=== PATIENT | female | born 1985 | race Caucasian/White ===

== ENCOUNTER 2017-03-22 04:01 | Inpatient (IN) | payer OTHER ==
[2017-03-22] MEDS ORDERED: LIDOCAINE 1% 30 ML SDV SC PRN (04:29)
[2017-03-22] MEDS ORDERED: LR 1,000 ML IV PRN ×2 (04:29→11:35)
[2017-03-22] MEDS ORDERED: OLIVE OIL 118 ML BTL MISC PRN (04:29)
[2017-03-22] MEDS ORDERED: EPSOM SALT 454 GM TP PRN (04:29)
[2017-03-22] MEDS ORDERED: TERBUTALINE SULFATE 1 MG/ML VIAL IV PRN (04:29)
[2017-03-22] MEDS ORDERED: OXYTOCIN/RINGERS LACTATE 1,000 ML IV PRN (04:29)
--- NOTE | 2017-03-22 04:51 | OBPROG ---
OBG Progress Note Assessment/Plan: Assessment: cat1 fhr pain well managed regular contractions q2-3 clear fluid vaginally rom 1999 iv ok wants a nonmedicated Plan:expectant management of labor 03/22/17 04:49 Subjective: doing well. Coping well with pain. Regular contractions. Continued loss of clear fluid. - SVE Dilation (cm): 4 Effacement (%): 75 Station: -2 Current Contraction Pattern: Regular FHR (bpm): 125 FHR Pattern Variability: Moderate FHR Category: 1 Membranes: SROM Amniotic Fluid Color: Clear - Physical Exam General Appearance: WD/WN, alert, no apparent distress Respiratory: chest non-tender, lungs clear, normal breath sounds Cardiac/Chest: regular rate, rhythm Abdomen: normal bowel sounds Membranes: SROM Amniotic Fluid Color: clear Extremities: normal range of motion, Dc's sign (negative bilaterally) DTR- Lower Extremities: Knee (R): 1+, Knee (L): 1+ Skin: normal color, warm/dry Neuro/Psych: no motor/sensory deficits, alert, normal mood/affect, oriented x 3 ICD10 Worksheet Patient Problems: Problems Problem Status Onset Full-term PROM with onset of labor within 24 hours of rupture Acute - ICD10 Problem Qualifiers (1) Full-term PROM with onset of labor within 24 hours of rupture
--- NOTE | 2017-03-22 05:54 | GHP ---
[f rep st] HISTORY AND PHYSICAL DATE OF ADMISSION: 03/22/2017 HISTORY OF PRESENT ILLNESS: Patient is a 31-year-old, 1, para 0, with an EDC of 03/20/2017 which gives her a gestational age of 40-2/7 weeks. Patient states rupture of membranes at 1999 on 03/21/2017 with positive fluid leaking vaginally on admission to Labor and Delivery on 03/22/2017 at 0430. Feeling positive movement. Regular contractions q.2-3 minutes apart. Clear fluid. Some small things to eat on admission. Vital signs within normal limits on admission. PAST MEDICAL HISTORY: UTIs a few years ago. PAST SURGICAL HISTORY: LASIK in 2010. FAMILY HISTORY: Noncontributory. GYNECOLOGICAL HISTORY: Previous use of OCPs. HISTORY: Patient is primip with history of a low-lying placenta less than 7 mm that has since resolved with ultrasound verification at 20 weeks gestation. LABORATORY DATA: Patient is B positive, antibody negative. RPR is nonreactive. Rubella is immune. Hepatitis is negative. HIV is negative. Pap was within normal limits. Gonorrhea and chlamydia were negative. AFP on 2015 was negative. Verifi was negative. One-hour was within normal limits. GBS was negative. PHYSICAL EXAMINATION: GENERAL: Patient is awake, alert, oriented x3. LUNGS: Clear bilaterally. ABDOMEN: Bowel sounds are positive in all 4 quadrants. Abdomen is soft on palpation. Contractions are q.2-3 minutes. EXTREMITIES: DTRs are 1+ bilaterally. Clonus is negative. PELVIC: 4, 75, -2, cephalic presentation. PLAN: 1. Patient is GBS negative. 2. Patient requests low intervention, as well as nonmedicated . 3. Intermittent auscultation. 4. Continued leaking of clear fluid with rupture of membranes verified at 1999 on 03/21/2017 /[id number]/MODL MTDD
[2017-03-22 06:37] LABS: % IMMATURE GRANULYOCYTES 0.6 % (0.0-1.1); ABSOLUTE IMMATURE GRANULOCYTES 0.08 10^3/uL (0.00-0.10); ADD DIFF? NO; ADD MORPH? NO; ADD SCAN? NO; ATYPICAL LYMPHOCYTE FLAG 0 (0-99); FRAGMENT RBC FLAG 0 (0-99); HEMATOCRIT 36.7 % (38.0-47.0); HEMOGLOBIN 13.1 g/dL (12.6-16.3); LEFT SHIFT FLG 0 (0-99); LIPEMIA HEMOLYSIS FLAG 90 (0-99); MEAN CELL HEMOGLOBIN 30.9 pg (27.9-34.1); MEAN CELL HEMOGLOBIN CONCENTR. 35.7 g/dL (32.4-36.7); MEAN CELL VOLUME 86.6 fL (81.5-99.8); MEAN PLATELET VOLUME 9.7 fL (8.7-11.7); PLATELET CLUMPS FLAG 10 (0-99); PLATELET COUNT 185 10^3/uL (150-400); RED BLOOD CELL COUNT 4.24 10^6/uL (4.18-5.33); RED CELL DISTRIBUTION WIDTH 12.7 % (11.5-15.2)
--- NOTE | 2017-03-22 09:46 | OBPROG ---
OBG Progress Note Assessment/Plan: Assessment: IUP at 40w2d with SROM at 12+hours GBS - desiring natural approach, will do acupuncture - rec pitocin - pt declines at this point Plan: Doing ok - breathing with some and palp tight 03/22/17 09:43 Subjective: doing ok - seems to be vira well Objective: 03/22/17 06:20 Patient ABO/Rh B POSITIVE 03/22/17 06:20 Current Contraction Pattern: Regular (q 3-6 min - not on monitoring cntinuously) FHR (bpm): 120 FHR Pattern Variability: Moderate FHR Category: 1 Membranes: SROM Amniotic Fluid Color: Clear ICD10 Worksheet Patient Problems: Problems Problem Status Onset Full-term PROM with onset of labor within 24 hours of rupture Acute
[2017-03-22] MEDS ORDERED: OLIVE OIL 118 ML BTL ONE (11:57)
[2017-03-22] MEDS ORDERED: LIDOCAINE 1% 30 ML SDV ONE (11:57)
[2017-03-22] MEDS ORDERED: AMMONIA AROMATIC 1 EACH AMP IH ONE (11:57)
[2017-03-22] MEDS ORDERED: OXYTOCIN 10 UNIT/ML VIAL ONE (11:58)
[2017-03-22] MEDS ORDERED: MISOPROSTOL 200 MCG TAB ONE (11:58)
[2017-03-22] MEDS ORDERED: TERBUTALINE SULFATE 1 MG/ML VIAL ONE (11:58)
[2017-03-22] MEDS: IBUPROFEN 600 MG TAB PO PRN (18:23)
[2017-03-22] MEDS ORDERED: ACETAMINOPHEN 325 MG TAB PO PRN (18:36)
--- NOTE | 2017-03-22 18:40 | OBPROC ---
- Labor and Delivery Onset of Contractions Date: 03/22/17 Onset of Contractions Time: 12:30 Onset of Contractions Type: Spontaneous Rupture of Membranes Date: 03/21/17 Rupture of Membranes Time: 19:45 Rupture of Membranes Type: Spontaneous Amniotic Fluid Color: Clear Dilation Complete Time: 16:40 Delivery Type: Spontaneous Placenta Delivery Date: 03/22/17 Placenta Delivery Time: 17:57 Episiotomy/Laceration: 1st Degree, Other (Specify) (right labial) EBL: 300 Complications: None - Medications Labor Augmentation/Induction Meds Used: None (had acupuncture approx 10a) - Info Infant A Delivery Date: 03/22/17 Delivery Time: 17:47 Sex of : Male Score (1 Min): 8 Score (5 Min): 9
[2017-03-23] MEDS: IBUPROFEN 600 MG TAB PO PRN ×3 (09:07→21:22)
[2017-03-23] MEDS: DOCUSATE SODIUM 100 MG CAP PO PRN (09:08)
--- NOTE | 2017-03-23 12:52 | SOAPPROG ---
SOAP Progress Note Assessment/Plan: Assessment: Acupuncture consult requested by Dr. Rachell Rodriguez. Patient desires natural childbirth and would prefer not to use Pitocin. At time of visit, patient was 4 cm. Treatment: BL 23 - 32 bilateral with electrical stimulation R ST 34 - BL 60 with electric stimulation [address] 36 - L SP 6 with electric stimulation R BL 67 L LR 3 Auricular: Uterus Endocrine [place] Point Zero Autonomic Carias Men Patient has some anxiety about needles but relaxed once they were in. Elected not to do acupuncture on her hands so she would have some "freedom" to move. 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 Acupressure performed for fifteen minutes during acupuncture treatment. Plan: Will be available for F/U visit if patient desires. 03/22/17 12:47 Objective: Vital Signs Temp Pulse Resp BP Pulse Ox 36.8 C 69 18 124/80 H 97 03/23/17 08:10 03/23/17 08:10 03/23/17 08:10 03/23/17 08:10 03/23/17 08:10 Laboratory Results 03/22/17 06:20 03/22/17 03/23/17 03/24/17 05:59 05:59 05:59 Output Total 300 Balance -300 ICD10 Worksheet Patient Problems: Problems Problem Status Onset (spontaneous vaginal delivery) Acute
--- NOTE | 2017-03-23 14:08 | SOAPPROG ---
SOAP Progress Note Assessment/Plan: Assessment: ppd# 1 s/p breast feeding uncomplicated post course Plan: routine post care 03/23/17 14:05 Subjective: patient is doing well. pain is well controlled. normal lochia. breast feeding is going well. denies headache and changes in vision. ambulating. voiding without difficulty. Objective: Vital Signs Temp Pulse Resp BP Pulse Ox 36.8 C 69 18 124/80 H 97 03/23/17 08:10 03/23/17 08:10 03/23/17 08:10 03/23/17 08:10 03/23/17 08:10 Laboratory Results 03/22/17 06:20 03/22/17 03/23/17 03/24/17 05:59 05:59 05:59 Output Total 300 Balance -300 ICD10 Worksheet Patient Problems: Problems Problem Status Onset (spontaneous vaginal delivery) Acute
[2017-03-23 20:44] VITALS: O2SAT 95
--- NOTE | 2017-03-24 10:25 | OBPROG ---
OBG Progress Note Assessment/Plan: Assessment: 31 y/o PPD#2 s/p doing well. Plan: Will give Rx APNO cream and Ibuprofen for discharge. D/c home today to follow- up @ [facility] 4 and 6 weeks. 03/24/17 10:24 Subjective: Pt is doing well today. She has min cramping controlled with Ibuprofen. Her perineal pain is well controlled and she has min lochia. No BM yet, taking Colace. She has some nipple soreness and min bleeding on the left side, but she feels milk is coming in and baby has improved the latch. They are ready to d/c home. Objective: 03/22/17 06:20 Patient ABO/Rh B POSITIVE 03/22/17 06:20 Temp Pulse Resp BP Pulse Ox 36.8 C 68 14 112/74 95 03/23/17 20:00 03/23/17 20:00 03/23/17 20:00 03/23/17 20:00 03/23/17 20:00 Uterine Position/Fundal Height: Umbilicus -2 Uterine Tone: Firm - Physical Exam General Appearance: WD/WN, alert, no apparent distress Neck: non-tender, full range of motion, supple Respiratory: chest non-tender, lungs clear, normal breath sounds Cardiac/Chest: regular rate, rhythm Extremities: swelling (no), Dc's sign (neg) ICD10 Worksheet Patient Problems: Problems Problem Status Onset (spontaneous vaginal delivery) Acute
[2017-03-24 10:34] VITALS: BP 109/77; PULSE 95; RESP 16; TEMP 97.5
[2017-03-24] MEDS: DOCUSATE SODIUM 100 MG CAP PO PRN (10:34)
[2017-03-24] MEDS: IBUPROFEN 600 MG TAB PO PRN (10:34)
== END 2017-03-24 13:20 | disposition home or self-care (01) | DRG 775 ==
LOC: OBSVTOIN 04:01 → FLD 04:01 → FOB 21:24
PROVIDERS: ADMIT Advanced Practice Midwife; ATTEND Advanced Practice Midwife
PROC: 10E0XZZ Delivery of Products of Conception, External Approach (ICD-10-PCS; principal; 2017-03-22)
DX: O70.0 First degree perineal laceration during delivery (principal); Z37.0 Single live birth; Z3A.40 40 weeks gestation of pregnancy
CPT/HCPCS: J2590; J3105

== ENCOUNTER → 2017-08-17 | Outpatient (CLI) | payer OTHER | LOC: FLACT 12:05 | PROVIDERS: ATTEND Obstetrics & Gynecology | DX: O92.79 Other disorders of lactation (principal) | CPT/HCPCS: G0463 ==

== ENCOUNTER → 2018-09-20 | Outpatient (CLI) | payer OTHER | LOC: FIMAGING 14:43 | PROVIDERS: ATTEND Family Medicine | DX: D24.1 Benign neoplasm of right breast (principal) ==

== ENCOUNTER → 2019-03-30 | Outpatient (CLI) | payer OTHER | LOC: FIMAGING 08:40 | PROVIDERS: ATTEND Family Medicine | DX: N63.12 Unspecified lump in the right breast, upper inner quadrant (principal) ==